=== PATIENT | male | born 1960 | race Caucasian/White ===

== ENCOUNTER 2017-03-24 06:48 | Emergency (ER) | payer MEDICARE, OTHER ==
[~2017-03-24] VITALS: Ht 185.4 cm; Wt 138.7 kg
[~2017-03-24 06:48] MED LIST: AMLO10 PO; ASPI325T PO; CARV3.12 PO; ISOS60 PO; LOSA50 PO; PRAS10 PO; ROSU10 PO
[2017-03-24 06:56] VITALS: BP 156/75; PULSE 80; RESP 16; TEMP 97.9; O2SAT 96
[2017-03-24] MEDS ORDERED: CARV3.12 PO (07:13)
[2017-03-24] MEDS ORDERED: ROSU20 PO (07:13)
[2017-03-24] MEDS ORDERED: LOSA100T PO (07:13)
[2017-03-24] MEDS ORDERED: AMLO10TA2 PO (07:13)
[2017-03-24] MEDS ORDERED: ISOS30TA3 PO (07:13)
[2017-03-24] MEDS ORDERED: ASPI-183 PO (07:13)
--- NOTE | 2017-03-24 07:25 | PD ---
HPI Chief Complaint: Respiratory Symptoms Time Seen by Provider: 07:22 Travel History International Travel<30 days: No Contact w/Intl Traveler<30days: No Traveled to known affect area: No History of Present Illness HPI 56-year-old male patient with history of 2 previous MIs, stenting, hypertension , high cholesterol, presents to the ER today because he states that he started having shortness of breath last night when he would lay down. He states that it happened twice. He denies any chest pains, but has been coughing with some white phlegm. He denies any fevers, abdominal pains, vomiting, or any other symptoms. Modifying Factors: None Associated Signs & Symptoms: Shortness of breath, coughing Risk Factors: None PFSH Past Medical History Blood Disorders: No Heart Rhythm Problems: No Cancer: No Cardiovascular Problems: No High Cholesterol: Yes Chest Pain: Yes ([place]) Congestive Heart Failure: No Diminished Hearing: No Endocrine: No Gastrointestinal Disorders: No Gout: Yes Genitourinary: No Hypertension: Yes Immune Disorder: No Musculoskeletal: No Neurologic: No Psychiatric: No Reproductive: No Respiratory: No Immunizations Current: No Myocardial Infarction: Yes (11/16/08) Shingles: No Past Surgical History Abdominal Surgery: No Cardiac Surgery: Yes (2008 3 STENTS LAD) Coronary Stent: Yes (X3) Ear Surgery: No Endocrine Surgery: No Eye Surgery: No Genitourinary Surgery: No Gynecologic Surgery: No Oral Surgery: No Thoracic Surgery: No Other Surgery: Yes (CYST REMOVED FROM BACK IN 2005) Social History Alcohol Use: Yes (DAILY) Tobacco Use: No Substance Use: No Allergies-Medications (Allergen,Severity, Reaction): Coded Allergies: lovastatin (Unverified Allergy, Severe, MUSCLE PAIN, 03/24/17) benazepril (Unverified Adverse Reaction, Unknown, COUGH, 03/24/17) cough captopril (Unverified Adverse Reaction, Unknown, COUGH, 03/24/17) cough enalaprilat (Unverified Adverse Reaction, Unknown, COUGH, 03/24/17) cough fosinopril (Unverified Adverse Reaction, Unknown, COUGH, 03/24/17) cough lisinopril (Unverified Adverse Reaction, Unknown, COUGH, 03/24/17) cough quinapril (Unverified Adverse Reaction, Unknown, COUGH, 03/24/17) cough Reported Meds & Prescriptions Reported Meds & Active Scripts Active Reported Isosorbide Mononitrate ER (Isosorbide Mononitrate) 30 Mg Juan Jose 30 Mg PO DAILY Amlodipine (Amlodipine Besylate) 10 Mg Tab 10 Mg PO HS Aspirin 325 Mg Tab 325 Mg PO DAILY Losartan (Losartan Potassium) 100 Mg Tab 100 Mg PO DAILY Crestor (Rosuvastatin Calcium) 20 Mg Tab 20 Mg PO HS Carvedilol 3.125 Mg Tab 3.125 Mg PO BID Review of Systems Except as stated in HPI: all other systems reviewed are Neg Physical Exam Narrative GENERAL: Well-developed middle age white male patient currently in mild distress. Awake and oriented 3. SKIN: Focused skin assessment warm/dry. HEAD: Atraumatic. Normocephalic. EYES: Pupils equal and round. No scleral icterus. No injection or drainage. ENT: No nasal bleeding or discharge. Mucous membranes pink and moist. NECK: Trachea midline. No JVD. Supple. CARDIOVASCULAR: Regular rate and rhythm. No murmur appreciated. Pulses are present and equal bilaterally. RESPIRATORY: No accessory muscle use. Clear to auscultation. Breath sounds equal bilaterally. GASTROINTESTINAL: Abdomen soft, non-tender, nondistended. Hepatic and splenic margins not palpable. MUSCULOSKELETAL: No obvious deformities. No clubbing. No cyanosis. No edema. NEUROLOGICAL: Awake and alert. No obvious cranial nerve deficits. Motor grossly within normal limits. Normal speech. PSYCHIATRIC: Appropriate mood and affect; insight and judgment normal. Data Data Last Documented VS Vital Signs Date Time Temp Pulse Resp B/P (MAP) Pulse Ox O2 Delivery O2 Flow Rate FiO2 03/24/17 07:43 95 Room Air 03/24/17 06:56 97.9 80 16 Orders Orders Complete Blood Count With Diff (03/24/17 07:16) Comprehensive Metabolic Panel (03/24/17 07:16) B-Type Natriuretic Peptide (03/24/17 07:16) Act Partial Throm Time (Ptt) (03/24/17 07:16) Prothrombin Time / Inr (Pt) (03/24/17 07:16) Ckmb (Isoenzyme) Profile (03/24/17 07:16) Troponin I (03/24/17 07:16) Iv Access Insert/Monitor (03/24/17 07:16) Ecg Monitoring (03/24/17 07:16) Oximetry (03/24/17 07:16) Oxygen Administration (03/24/17 07:16) Chest, Single Ap (03/24/17 07:16) Sodium Chloride 0.9% Flush (Ns Flush) (03/24/17 07:30) D-Dimer (03/24/17 07:22) CKMB (03/24/17 07:30) CKMB% (03/24/17 07:30) Ed Discharge Order (03/24/17 08:49) Labs Laboratory Tests Test 03/24/17 07:30 White Blood Count 8.4 TH/MM3 Red Blood Count 5.08 MIL/MM3 Hemoglobin 14.1 GM/DL Hematocrit 42.7 % Mean Corpuscular Volume 84.0 FL Mean Corpuscular Hemoglobin 27.7 PG Mean Corpuscular Hemoglobin Concent 33.0 % Red Cell Distribution Width 12.9 % Platelet Count 173 TH/MM3 Mean Platelet Volume 8.9 FL Neutrophils (%) (Auto) 67.8 % Lymphocytes (%) (Auto) 20.6 % Monocytes (%) (Auto) 7.3 % Eosinophils (%) (Auto) 3.1 % Basophils (%) (Auto) 1.2 % Neutrophils # (Auto) 5.7 TH/MM3 Lymphocytes # (Auto) 1.7 TH/MM3 Monocytes # (Auto) 0.6 TH/MM3 Eosinophils # (Auto) 0.3 TH/MM3 Basophils # (Auto) 0.1 TH/MM3 CBC Comment DIFF FINAL Differential Comment Prothrombin Time 10.0 SEC Prothromb Time International Ratio 1.0 RATIO Activated Partial Thromboplast Time 25.0 SEC D-Dimer Quantitative (PE/DVT) 0.30 MG/L FEU Blood Urea Nitrogen 10 MG/DL Creatinine 0.95 MG/DL Random Glucose 118 MG/DL Total Protein 7.2 GM/DL Albumin 3.8 GM/DL Calcium Level 8.3 MG/DL Alkaline Phosphatase 61 U/L Aspartate Amino Transf (AST/SGOT) 18 U/L Alanine Aminotransferase (ALT/SGPT) 32 U/L Total Bilirubin 0.5 MG/DL Sodium Level 139 MEQ/L Potassium Level 4.1 MEQ/L Chloride Level 106 MEQ/L Carbon Dioxide Level 24.8 MEQ/L Anion Gap 8 MEQ/L Estimat Glomerular Filtration Rate 81 ML/MIN Total Creatine Kinase 159 U/L Creatine Kinase MB 2.0 NG/ML Troponin I LESS THAN 0.02 NG/ML B-Type Natriuretic Peptide 53 PG/ML MDM Medical Decision Making Medical Screen Exam Complete: Yes Emergency Medical Condition: Yes Medical Record Reviewed: Yes Interpretation(s) EKG shows a normal sinus rhythm at a rate of 77 bpm with a first-degree AV block. There is also a partial left fascicular block. No signs of acute ST-T changes. Laboratory Tests Test 03/24/17 07:30 Random Glucose 118 MG/DL (74-106) Calcium Level 8.3 MG/DL (8.5-10.1) Estimat Glomerular Filtration Rate 81 ML/MIN (>89) Troponin I LESS THAN 0.02 NG/ML Last 24 hours Impressions Chest X-Ray 03/24/1716 Signed Impressions: Service Date/Time: Friday, March 24, 2017 07:36 - CONCLUSION: No acute disease. Maynor Kwan MD Differential Diagnosis Shortness of breath, coughing: Bronchitis versus pneumonia versus CHF versus anxiety attacks versus dysrhythmias Narrative Course On exam, his lungs are clear. His chest x-ray is unremarkable for any signs of pneumonia or other acute ulnar processes. BNP is normal. D-dimer is negative. Vital signs do show an elevated blood pressure but was otherwise unremarkable. He is not having any chest pains. EKG did not show dysrhythmias. At this point, my plan would be to release him with follow-up to primary care physician. Return for any worsening in symptoms as needed. The plan has been discussed with him and he states understanding. Diagnosis Primary Impression: Shortness of breath Prasanth Tan MD Mar 24, 2017 07:24
[2017-03-24] MEDS ORDERED: SODIUM CHLORIDE 0.9% FLUSH 10 ML FLUSH IVF PRN (07:30)
[2017-03-24 07:34] LABS: AUTOMATED NEUTROPHIL # 5.7 TH/MM3 (1.8-7.7); BASOPHIL # 0.1 TH/MM3 (0-0.2); BASOPHIL % 1.2 % (0.0-2.0); EOSINOPHIL # 0.3 TH/MM3 (0-0.4); EOSINOPHIL % 3.1 % (0.0-4.0); HEMATOCRIT 42.7 % (39.0-51.0); HEMOGLOBIN 14.1 GM/DL (13.0-17.0); LYMPH % 20.6 % (9.0-44.0); LYMPHOCYTE # 1.7 TH/MM3 (1.0-4.8); MEAN CORPUSCULAR HEMOGLOBIN 27.7 PG (27.0-34.0); MEAN PLATELET VOLUME 8.9 FL (7.0-11.0); MONO % 7.3 % (0.0-8.0); MONOCYTE # 0.6 TH/MM3 (0-0.9); NEUT % 67.8 % (16.0-70.0); PLATELET COUNT 173 TH/MM3 (150-450); RED BLOOD COUNT 5.08 MIL/MM3 (4.50-5.90); RED CELL DISTRIBUTION WIDTH 12.9 % (11.6-17.2); WHITE BLOOD COUNT 8.4 TH/MM3 (4.0-11.0)
[2017-03-24 07:42] LABS: CHLORIDE 106 MEQ/L (98-107); SODIUM (NA) 139 MEQ/L (136-145)
[2017-03-24 07:43] VITALS: O2SAT 95
[2017-03-24 07:45] LABS: ALBUMIN 3.8 GM/DL (3.4-5.0); BICARBONATE 24.8 MEQ/L (21.0-32.0); CALCIUM 8.3 MG/DL (8.5-10.1); GLUCOSE,RANDOM 118 MG/DL (74-106)
[2017-03-24 07:46] LABS: BLOOD UREA NITROGEN 10 MG/DL (7-18)
[2017-03-24 07:48] LABS: ALT (GPT) 32 U/L (12-78)
[2017-03-24 07:49] LABS: AST (GOT) 18 U/L (15-37); CREATININE 0.95 MG/DL (0.60-1.30); GLOMERULAR FILTRATION RATE 81 ML/MIN (>89)
[2017-03-24 07:50] LABS: TOTAL BILIRUBIN ADULT 0.5 MG/DL (0.2-1.0); TOTAL PROTEIN 7.2 GM/DL (6.4-8.2)
--- NOTE | 2017-03-24 07:50 | RADRPT ---
EXAM DATE/TIME: 03/24/2017 07:36 [facility] COMPARISON: CHEST SINGLE AP, December 01, 2015, 14:04. INDICATIONS : Chest pain and shortness of breath. MEDICAL HISTORY : None. SURGICAL HISTORY : cardiac stents ENCOUNTER: Initial ACUITY: 1 day PAIN SCORE: 8/10 LOCATION: Bilateral upper chest FINDINGS: A single view of the chest demonstrates the lungs to be symmetrically aerated without evidence of mas s, infiltrate or effusion. The cardiomediastinal contours are unremarkable. Osseous structures are intact. CONCLUSION: No acute disease. Maynor Kwan MD on March 24, 2017 at 7:48 Board Certified Radiologist. This report was verified electronically.
[2017-03-24 07:51] LABS: ALKALINE PHOSPHATASE 61 U/L (45-117)
[2017-03-24 07:53] LABS: TROPONIN I LESS THAN 0.02 NG/ML (0.02-0.05)
[2017-03-24 08:57] VITALS: BP 153/87
--- NOTE | 2017-03-24 17:26 | EKG ---
Date Performed: 03/24/2017 Time Performed: 07:05:14 PTAGE: 56 years EKG: Sinus rhythm WITH FIRST DEGREE AV BLOCK LOW QRS VOLTAGE IN PRECORDIAL LEADS LEFT ANTERIOR FASCICULAR BLOCK MIRACLE SEPTAL MYOCARDIAL INFARCTION Since previous tracing, no significant change noted ABNORMAL ECG PREVIOUS TRACING : 12/28/2015 10.11 DOCTOR: Raquel Valentin Interpretating Date/Time 03/24/2017 17:24:35
== END 2017-03-24 09:02 | disposition home or self-care (01) ==
LOC: PHED 06:48
DX: R05 Cough (principal); R06.02 Shortness of breath; I44.0 Atrioventricular block, first degree; I44.69 Other fascicular block; R94.31 Abnormal electrocardiogram [ECG] [EKG]; I25.2 Old myocardial infarction; E78.00 Pure hypercholesterolemia, unspecified; M10.9 Gout, unspecified; I10 Essential (primary) hypertension
CPT/HCPCS: 71010; 80053; 82550; 82552; 83880; 84484; 85025; 85379; 85610; 85730; 93005; 99285

== ENCOUNTER 2017-05-03 14:57 | Observation (INO) | payer MEDICARE, OTHER ==
[~2017-05-03] VITALS: Ht 185.4 cm; Wt 137.0 kg
[2017-05-03] VITALS (11 sets, daily range): BP systolic 134–178; BP diastolic 82–97; PULSE 77–137; RESP 16–18; TEMP 96.5–98.4; O2SAT 94–97
[~2017-05-03 14:57] MED LIST changes: -AMLO10 PO; +AMLO10TA2 PO; +ASPI-183 PO; -ASPI325T PO; +ISOS30TA3 PO; -ISOS60 PO; +LOSA100T PO; -LOSA50 PO; -PRAS10 PO; -ROSU10 PO; +ROSU20 PO
[2017-05-03] MEDS ORDERED: SODIUM CHLORIDE 0.9% FLUSH 10 ML FLUSH IVF PRN (15:15)
[2017-05-03] MEDS ORDERED: ASPIRIN 325 MG TAB PO ONE (15:15)
--- NOTE | 2017-05-03 15:26 | PD ---
HPI Chief Complaint: Respiratory Symptoms Time Seen by Provider: 15:06 Travel History International Travel<30 days: No Contact w/Intl Traveler<30days: No Traveled to known affect area: No History of Present Illness HPI This patient developed central chest discomfort and had some shortness of breath. He thinks the symptoms were caused by a combination of drinking alcohol last night and taking his blood pressure medication. He says it happened once before. He does have history of coronary disease with 2 stents placed. Symptoms were moderately severe. Chest pain started 2 hours ago. It' s much improved at this point. No obvious alleviating factors. No exacerbating factors. He does not have any productive cough or fever. PFSH Past Medical History Hx Anticoagulant Therapy: Yes (325 ASA DAILY) Blood Disorders: No Heart Rhythm Problems: No Cancer: No Cardiovascular Problems: Yes (ID'S TIMES 2, CHOL, HTN) High Cholesterol: Yes Chest Pain: Yes ([place]) Congestive Heart Failure: No Diabetes: No Diminished Hearing: No Endocrine: No Gastrointestinal Disorders: No Gout: Yes Genitourinary: No Hypertension: Yes Immune Disorder: No Musculoskeletal: No Neurologic: No Psychiatric: No Reproductive: No Respiratory: No Immunizations Current: No Myocardial Infarction: Yes (11/16/08) Shingles: No Past Surgical History Abdominal Surgery: No Cardiac Surgery: Yes (2009 3 STENTS LAD) Coronary Stent: Yes (X3) Ear Surgery: No Endocrine Surgery: No Eye Surgery: No Genitourinary Surgery: No Gynecologic Surgery: No Oral Surgery: No Thoracic Surgery: No Other Surgery: Yes (CYST REMOVED FROM BACK IN 2005) Social History Alcohol Use: Yes (DAILY) Tobacco Use: No Substance Use: No Allergies-Medications (Allergen,Severity, Reaction): Coded Allergies: lovastatin (Unverified Allergy, Severe, MUSCLE PAIN, 05/03/17) benazepril (Unverified Adverse Reaction, Unknown, COUGH, 05/03/17) cough captopril (Unverified Adverse Reaction, Unknown, COUGH, 05/03/17) cough enalaprilat (Unverified Adverse Reaction, Unknown, COUGH, 05/03/17) cough fosinopril (Unverified Adverse Reaction, Unknown, COUGH, 05/03/17) cough lisinopril (Unverified Adverse Reaction, Unknown, COUGH, 05/03/17) cough quinapril (Unverified Adverse Reaction, Unknown, COUGH, 05/03/17) cough Reported Meds & Prescriptions Reported Meds & Active Scripts Active Reported Nitrostat SL (Nitroglycerin) 0.4 Mg Subl 0.4 Mg SL DIRECTED PRN 1 tablet under the tongue as needed for chest pain. Repeat every 5 minutes for a total of 3 DOSES or call 911 if NO relief. Isosorbide Mononitrate ER (Isosorbide Mononitrate) 30 Mg Juan Jose 30 Mg PO DAILY Amlodipine (Amlodipine Besylate) 10 Mg Tab 10 Mg PO HS Aspirin 325 Mg Tab 325 Mg PO DAILY Losartan (Losartan Potassium) 100 Mg Tab 100 Mg PO DAILY Crestor (Rosuvastatin Calcium) 20 Mg Tab 20 Mg PO HS Carvedilol 3.125 Mg Tab 3.125 Mg PO BID Review of Systems General / Constitutional: No: Fever Eyes: No: Visual changes HENT: No: Headaches Cardiovascular: Positive: Chest Pain or Discomfort Respiratory: Positive: Shortness of Breath Gastrointestinal: No: Abdominal Pain Genitourinary: No: Dysuria Musculoskeletal: No: Pain Skin: No Rash Neurologic: No: Weakness Psychiatric: No: Depression Endocrine: No: Polydipsia Hematologic/Lymphatic: No: Easy Bruising Physical Exam Narrative GENERAL: Well-nourished, well-developed patient in no apparent distress. SKIN: Focused skin assessment reveals no rash and nodules. Skin is Warm and dry. HEAD: Atraumatic. Normocephalic. EYES: Pupils equal and round. No scleral icterus. No injection or drainage. ENT: No nasal bleeding or discharge. Mucous membranes pink and moist. NECK: Trachea midline. No JVD. CARDIOVASCULAR: Regular rate and rhythm. No murmur appreciated. RESPIRATORY: No accessory muscle use. Clear to auscultation. Breath sounds equal bilaterally. GASTROINTESTINAL: Abdomen soft, non-tender, nondistended. Hepatic and splenic margins not palpable. MUSCULOSKELETAL: No obvious deformities. No clubbing. No cyanosis. No edema. NEUROLOGICAL: Awake and alert. No obvious cranial nerve deficits. Motor grossly within normal limits. Normal speech. PSYCHIATRIC: Appropriate mood and affect; insight and judgment normal. Data Data Last Documented VS Vital Signs Date Time Temp Pulse Resp B/P (MAP) Pulse Ox O2 Delivery O2 Flow Rate FiO2 05/03/17 15:50 84 16 178/91 (120) 97 Room Air 05/03/17 15:00 98.4 Orders Orders Electrocardiogram (05/03/17 15:12) Basic Metabolic Panel (Bmp) (05/03/17 15:12) Ckmb (Isoenzyme) Profile (05/03/17 15:12) Complete Blood Count With Diff (05/03/17 15:12) Prothrombin Time / Inr (Pt) (05/03/17 15:12) Act Partial Throm Time (Ptt) (05/03/17 15:12) Troponin I (05/03/17 15:12) Chest, Single Ap (05/03/17 15:12) Ecg Monitoring (05/03/17 15:12) Iv Access Insert/Monitor (05/03/17 15:12) Oximetry (05/03/17 15:12) Aspirin (Aspirin) (05/03/17 15:15) Sodium Chloride 0.9% Flush (Ns Flush) (05/03/17 15:15) CKMB (05/03/17 15:45) CKMB% (05/03/17 15:45) Admit Order (Ed Use Only) (05/03/17 17:15) Labs Laboratory Tests Test 05/03/17 15:45 White Blood Count 8.6 TH/MM3 Red Blood Count 4.79 MIL/MM3 Hemoglobin 13.2 GM/DL Hematocrit 40.2 % Mean Corpuscular Volume 84.0 FL Mean Corpuscular Hemoglobin 27.6 PG Mean Corpuscular Hemoglobin Concent 32.8 % Red Cell Distribution Width 13.0 % Platelet Count 199 TH/MM3 Mean Platelet Volume 10.1 FL Neutrophils (%) (Auto) 68.0 % Lymphocytes (%) (Auto) 20.9 % Monocytes (%) (Auto) 7.2 % Eosinophils (%) (Auto) 2.5 % Basophils (%) (Auto) 1.4 % Neutrophils # (Auto) 5.9 TH/MM3 Lymphocytes # (Auto) 1.8 TH/MM3 Monocytes # (Auto) 0.6 TH/MM3 Eosinophils # (Auto) 0.2 TH/MM3 Basophils # (Auto) 0.1 TH/MM3 CBC Comment DIFF FINAL Differential Comment Prothrombin Time 10.3 SEC Prothromb Time International Ratio 1.0 RATIO Activated Partial Thromboplast Time 24.3 SEC Blood Urea Nitrogen 14 MG/DL Creatinine 1.00 MG/DL Random Glucose 98 MG/DL Calcium Level 8.8 MG/DL Sodium Level 139 MEQ/L Potassium Level 3.9 MEQ/L Chloride Level 105 MEQ/L Carbon Dioxide Level 25.6 MEQ/L Anion Gap 8 MEQ/L Estimat Glomerular Filtration Rate 76 ML/MIN Total Creatine Kinase 203 U/L Creatine Kinase MB 1.9 NG/ML Troponin I LESS THAN 0.02 NG/ML MDM Medical Decision Making Medical Screen Exam Complete: Yes Emergency Medical Condition: Yes Medical Record Reviewed: Yes Differential Diagnosis Differential diagnosis includes ID, angina, pericarditis, pleurisy, GERD, anxiety. Narrative Course I have reviewed the patient's electronic medical record. I reviewed his visit from last month IV placed I reviewed the EKG which shows sinus rhythm with no ST elevation. There is a PVC every fifth beat I reviewed the chest x-ray which is normal Extended cardiac monitoring shows sinus rhythm with occasional PVC CBC is normal Metabolic profile is normal CK is normal Troponin is normal Coagulation studies are normal Upon recheck the patient has an irregularly irregular heartbeat with a rate of around 100. There is some variability to this. He is in a new onset of atrial fibrillation. Patient requires hospitalization for chest pain as well as new-onset A. fib. I reviewed with Dr. Van Diagnosis Primary Impression: Chest pain in adult Additional Impression: New onset atrial fibrillation Admitting Information Admitting Physician Requests: Admit Efrain Cruz MD May 03, 2017 15:26
[2017-05-03] MEDS ORDERED: NITR0.4S SL (15:54)
[2017-05-03 16:06] LABS: AUTOMATED NEUTROPHIL # 5.9 TH/MM3 (1.8-7.7); BASOPHIL # 0.1 TH/MM3 (0-0.2); BASOPHIL % 1.4 % (0.0-2.0); EOSINOPHIL # 0.2 TH/MM3 (0-0.4); EOSINOPHIL % 2.5 % (0.0-4.0); HEMATOCRIT 40.2 % (39.0-51.0); HEMOGLOBIN 13.2 GM/DL (13.0-17.0); LYMPH % 20.9 % (9.0-44.0); LYMPHOCYTE # 1.8 TH/MM3 (1.0-4.8); MEAN CORPUSCULAR HEMOGLOBIN 27.6 PG (27.0-34.0); MEAN CORPUSCULAR HGB CONC 32.8 % (32.0-36.0); MEAN PLATELET VOLUME 10.1 FL (7.0-11.0); MONO % 7.2 % (0.0-8.0); MONOCYTE # 0.6 TH/MM3 (0-0.9); PLATELET COUNT 199 TH/MM3 (150-450); RED BLOOD COUNT 4.79 MIL/MM3 (4.50-5.90); WHITE BLOOD COUNT 8.6 TH/MM3 (4.0-11.0)
--- NOTE | 2017-05-03 16:09 | RADRPT ---
EXAM DATE/TIME: 05/03/2017 15:54 [facility] COMPARISON: CHEST SINGLE AP, March 24, 2017, 7:36. INDICATIONS : Short of breath, cough, chest pains MEDICAL HISTORY : None. SURGICAL HISTORY : Cardiac stents ENCOUNTER: Initial ACUITY: 1 day PAIN SCORE: 1/10 LOCATION: Bilateral chest FINDINGS: The lungs are clear without infiltrate, nodule, or mass. There is no appreciable pleural effusion fo r technique. Heart and mediastinum are unremarkable. CONCLUSION: No acute cardiopulmonary disease. Kyle Braden MD on May 03, 2017 at 16:06 Board Certified Radiologist. This report was verified electronically.
[2017-05-03 16:17] LABS: CHLORIDE 105 MEQ/L (98-107); SODIUM (NA) 139 MEQ/L (136-145)
[2017-05-03 16:20] LABS: CALCIUM 8.8 MG/DL (8.5-10.1)
[2017-05-03 16:21] LABS: BICARBONATE 25.6 MEQ/L (21.0-32.0); BLOOD UREA NITROGEN 14 MG/DL (7-18); GLUCOSE,RANDOM 98 MG/DL (74-106)
[2017-05-03 16:22] LABS: PROTHROMBIN TIME - PATIENT 10.3 SEC (9.8-11.6)
[2017-05-03 16:24] LABS: GLOMERULAR FILTRATION RATE 76 ML/MIN (>89)
[2017-05-03 16:29] LABS: TROPONIN I LESS THAN 0.02 NG/ML (0.02-0.05)
[2017-05-03] MEDS ORDERED: SODIUM CHLORIDE 0.9% FLUSH 10 ML FLUSH IV FLUSH PRN (17:30)
[2017-05-03] MEDS: SODIUM CHLORIDE 0.9% FLUSH 10 ML FLUSH IV FLUSH SCH (21:36)
[2017-05-04] VITALS (10 sets, daily range): BP systolic 131–155; BP diastolic 68–98; PULSE 50–90; RESP 16–18; TEMP 96.5–98.4; O2SAT 93–98
--- NOTE | 2017-05-04 09:40 | HHI.HP ---
[facility] Service [facility] Primary [facility] Physician Kathy Payton MD Admission Diagnosis chest pain, new onset Afib, CAD Diagnoses: (1) Dyspnea (2) New onset atrial fibrillation (3) CAD (coronary artery disease) Chief Complaint: Dyspnea Travel History International Travel<30 Days: No Contact w/Intl Traveler <30 Da: No Traveled to Known Affected Are: No History of Present Illness The patient is a 57-year-old male with known history of coronary artery disease who presented with complaint of shortness of breath over the past few days. He states that he developed worsening of his symptoms after drinking alcohol. He states that he did not have more than his normal 2-3 drinks per day. He denies chest pain. He states that the shortness of breath has improved. Review of Systems Constitutional: DENIES: Fever, Chills, Night Sweats Eyes: DENIES: Blurred vision, Vision loss Ears, nose, mouth, throat: DENIES: Hearing loss Respiratory: COMPLAINS OF: Shortness of breath, DENIES: Cough, Wheezing, Sputum production Cardiovascular: DENIES: Chest pain, Palpitations, Dyspnea on Exertion, Lower Extremity Edema Gastrointestinal: DENIES: Abdominal pain, Constipation, Diarrhea, Nausea, Vomiting Genitourinary: DENIES: Urinary frequency, Urinary incontinence, Urgency, Hematuria, Dysuria, Nocturia Musculoskeletal: DENIES: Joint pain, Muscle aches Integumentary: DENIES: Pruritus, Rash Hematologic/lymphatic: DENIES: Bruising Neurologic: DENIES: Headache Past Family Social History Past Medical History Coronary artery disease Hyperlipidemia Hypertension Past Surgical History Cardiac catheterization with stent placement Reported Medications Nitrostat SL (Nitroglycerin) 0.4 Mg Subl 0.4 Mg SL DIRECTED PRN 1 tablet under the tongue as needed for chest pain. Repeat every 5 minutes for a total of 3 DOSES or call 911 if NO relief. Isosorbide Mononitrate ER (Isosorbide Mononitrate) 30 Mg Juan Jose 30 Mg PO DAILY Amlodipine (Amlodipine Besylate) 10 Mg Tab 10 Mg PO HS Aspirin 325 Mg Tab 325 Mg PO DAILY Losartan (Losartan Potassium) 100 Mg Tab 100 Mg PO DAILY Crestor (Rosuvastatin Calcium) 20 Mg Tab 20 Mg PO HS Carvedilol 3.125 Mg Tab 3.125 Mg PO BID Allergies: Coded Allergies: lovastatin (Unverified Allergy, Severe, MUSCLE PAIN, 05/03/17) benazepril (Unverified Adverse Reaction, Unknown, COUGH, 05/03/17) cough captopril (Unverified Adverse Reaction, Unknown, COUGH, 05/03/17) cough enalaprilat (Unverified Adverse Reaction, Unknown, COUGH, 05/03/17) cough fosinopril (Unverified Adverse Reaction, Unknown, COUGH, 05/03/17) cough lisinopril (Unverified Adverse Reaction, Unknown, COUGH, 05/03/17) cough quinapril (Unverified Adverse Reaction, Unknown, COUGH, 05/03/17) cough Family History Heart disease Hypertension Hyperlipidemia Social History Patient reports 2-3 alcoholic drinks per day. Denies tobacco or illicit drug use. Physical Exam Vital Signs Vital Signs Date Time Temp Pulse Resp B/P (MAP) Pulse Ox O2 Delivery O2 Flow Rate FiO2 05/04/17 04:00 96.9 89 18 148/89 (108) 96 05/04/17 00:00 97.8 70 18 139/86 (103) 95 05/03/17 23:00 82 05/03/17 21:30 94 21 05/03/17 20:00 96.5 77 18 134/82 (99) 95 05/03/17 18:47 97.5 137 16 158/93 (114) 96 05/03/17 18:35 120 16 173/90 (117) 97 05/03/17 17:25 97 21 05/03/17 17:15 117 16 165/97 (119) 97 Room Air 05/03/17 17:00 104 16 97 Room Air 05/03/17 15:50 93 16 169/89 (115) 97 Room Air 05/03/17 15:30 91 16 178/91 (120) 97 Room Air 05/03/17 15:27 90 16 97 Room Air 05/03/17 15:27 18 97 Room Air 05/03/17 15:00 98.4 92 16 153/83 (106) 96 Physical Exam GENERAL: Well-nourished, well-developed male in no acute distress. HEENT: Normocephalic, atraumatic. Pupils equal, round and reactive. Extraocular movements intact. No scleral icterus. No injection or drainage. Oropharynx is clear. Mucous membranes are moist. CARDIOVASCULAR: Irregular rhythm. RESPIRATORY: Clear to auscultation. No wheezes, rales, or rhonchi. Breathing is non-labored. GASTROINTESTINAL: Abdomen soft, non-tender, nondistended. EXTREMITIES: No lower extremity edema. No calf tenderness. PSYCH: Alert and oriented x 3. Laboratory Laboratory Tests Test 05/03/17 15:45 05/03/17 20:20 05/03/17 23:48 White Blood Count 8.6 Red Blood Count 4.79 Hemoglobin 13.2 Hematocrit 40.2 Mean Corpuscular Volume 84.0 Mean Corpuscular Hemoglobin 27.6 Mean Corpuscular Hemoglobin Concent 32.8 Red Cell Distribution Width 13.0 Platelet Count 199 Mean Platelet Volume 10.1 Neutrophils (%) (Auto) 68.0 Lymphocytes (%) (Auto) 20.9 Monocytes (%) (Auto) 7.2 Eosinophils (%) (Auto) 2.5 Basophils (%) (Auto) 1.4 Neutrophils # (Auto) 5.9 Lymphocytes # (Auto) 1.8 Monocytes # (Auto) 0.6 Eosinophils # (Auto) 0.2 Basophils # (Auto) 0.1 CBC Comment DIFF FINAL Differential Comment Prothrombin Time 10.3 Prothromb Time International Ratio 1.0 Activated Partial Thromboplast Time 24.3 Blood Urea Nitrogen 14 Creatinine 1.00 Random Glucose 98 Calcium Level 8.8 Sodium Level 139 Potassium Level 3.9 Chloride Level 105 Carbon Dioxide Level 25.6 Anion Gap 8 Estimat Glomerular Filtration Rate 76 Total Creatine Kinase 203 Creatine Kinase MB 1.9 Troponin I LESS THAN 0.02 LESS THAN 0.02 LESS THAN 0.02 Result Diagram: 05/03/17 1545 05/03/17 1545 Imaging Last Impressions Chest X-Ray 05/03/17 1512 Signed Impressions: Service Date/Time: Wednesday, May 03, 2017 15:54 - CONCLUSION: No acute cardiopulmonary disease. MD Gilma Linton VTE Risk Assessment Gilma VTE Risk Assessment: Mod/High Risk (score >= 2) Caprini Risk Assessment Model Point Value = 1 Point Value = 2 Point Value = 3 Point Value = 5 Age 41-60 Minor surgery BMI > 25 kg/m2 Swollen legs Varicose veins or History of unexplained or recurrent spontaneous Oral contraceptives or hormone replacement Sepsis (< 1 month) Serious lung disease, including pneumonia (< 1 month) Abnormal pulmonary function Acute myocardial infarction Congestive heart failure (< 1 month) History of inflammatory bowel disease Medical patient at bed rest Age 61-74 Arthroscopic surgery Major open surgery (> 45 min) Laparoscopic surgery (> 45 min) Malignancy Confined to bed (> 72 hours) Immobilizing plaster cast Central venous access Age >= 75 History of VTE Family history of VTE Factor V Leiden Prothrombin [id number] Lupus anticoagulant Anticardiolipin antibodies Elevated serum homocysteine Heparin-induced thrombocytopenia Other congenital or acquired thrombophilia Stroke (< 1 month) Elective arthroplasty Hip, pelvis, or leg fracture Acute spinal cord injury (< 1 month) Prophylaxis Regimen Total Risk Factor Score Risk Level Prophylaxis Regimen 0-1 Low Early ambulation 2 Moderate Order ONE of the following: *Sequential Compression Device (SCD) *Heparin 5000 units SQ BID 3-4 Higher Order ONE of the following medications: *Heparin 5000 units SQ TID *Enoxaparin/Lovenox 40 mg SQ daily (WT < 150 kg, CrCl > 30 mL/min) *Enoxaparin/Lovenox 30 mg SQ daily (WT < 150 kg, CrCl > 10-29 mL/min) *Enoxaparin/Lovenox 30 mg SQ BID (WT < 150 kg, CrCl > 30 mL/min) AND/OR *Sequential Compression Device (SCD) 5 or more Highest Order ONE of the following medications: *Heparin 5000 units SQ TID (Preferred with Epidurals) *Enoxaparin/Lovenox 40 mg SQ daily (WT < 150 kg, CrCl > 30 mL/min) *Enoxaparin/Lovenox 30 mg SQ daily (WT < 150 kg, CrCl > 10-29 mL/min) *Enoxaparin/Lovenox 30 mg SQ BID (WT < 150 kg, CrCl > 30 mL/min) AND *Sequential Compression Device (SCD) Assessment and Plan Assessment and Plan 1. Dyspnea: Improving. Likely secondary to arrhythmia. Serial cardiac enzymes are negative. 2. New onset atrial fibrillation: Monitor on telemetry. Cardiology consult is pending. Will likely need full anticoagulation. 3. Hypertension: Continue losartan, amlodipine. 4. CAD: Continue Isosorbide, aspirin, losartan, Crestor, carvedilol. 5. Hyperlipidemia: Continue statin. 6. DVT prophylaxis: AYAN Brandt. Efrain Estrada MD May 04, 2017 09:39
[2017-05-04] MEDS: SODIUM CHLORIDE 0.9% FLUSH 10 ML FLUSH IV FLUSH SCH ×2 (09:49→20:30)
[2017-05-04] MEDS: LOSARTAN 50 MG TAB PO SCH (09:50)
[2017-05-04] MEDS: ISOSORBIDE MONONITRATE 30 MG TAB PO SCH (09:50)
[2017-05-04] MEDS ORDERED: CARVEDILOL 3.125 MG TAB PO SCH (10:00)
--- NOTE | 2017-05-04 13:33 | MB ---
cc: SHAMA VALENTIN MD DATE OF CONSULTATION: 05/04/2017 REASON FOR CONSULTATION New-onset atrial fibrillation. HISTORY OF PRESENT ILLNESS Mr. Miramontes is a 57-year-old patient of my partner Dr. Rangel. He does have history of hypertension and previous stenting of his proximal LAD. As well, he has a known COOK CANDY of his RCA with bridging collaterals that supply the PDA. The patient emphatically denies any chest pain. He does report that he has had some shortness of breath which precipitated his emergency room visit. The patient reports that he had shortness of breath over the last couple days. He has also had some palpitations. PAST MEDICAL HISTORY Significant for: 1. Hypertension. 2. Hyperlipidemia. 3. CAD. 4. Ischemic cardiomyopathy with an EF of 40-45%. OUTPATIENT MEDICATIONS Include: 1. Isosorbide. 2. Amlodipine. 3. Aspirin. 4. Losartan. 5. Crestor. 6. Carvedilol. ALLERGIES LOVASTATIN, CAPTOPRIL, ENALAPRIL, FOSINOPRIL, LISINOPRIL AND QUINAPRIL THAT CAUSE COUGH. FAMILY HISTORY Positive for hypertension and heart disease. SOCIAL HISTORY The patient does have [id number] drinks a day. REVIEW OF SYSTEMS Except as mentioned in the HPI, all 12 systems are negative. PHYSICAL EXAMINATION VITAL SIGNS: Currently are 98.0, 50, 18, 155/98. GENERAL: He is an obese man who is in no apparent distress. NECK: His neck is free from JVD. LUNGS: Lungs are bilaterally clear to auscultation. CARDIOVASCULAR: He has a normal S1 and S2. I did not appreciate any murmurs, rubs or gallops. ABDOMEN: The abdomen is soft. EXTREMITIES: Extremities are free from edema. IMAGING STUDIES Chest x-ray was negative for any acute process. EKG - the second EKG obtained does show atrial fibrillation with heart rate of 111 beats a minute. IMPRESSION New-onset atrial fibrillation - the patient does have CHADS vas score of 2 with a point for hypertension and a second point for TAD - prior DC. Given this I do believe full anticoagulation is reasonable. We discussed Coumadin versus new oral agents and he would like to go on Pradaxa as it does have a reversal agent. 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 The patient reports that he previously has been on a higher dose of Coreg and was not able to tolerate it secondary to lethargy. Consequently, I would like to try him on metoprolol for rate control given his underlying ischemic cardiomyopathy. The patient requested further evaluation with testing as an outpatient. Thus, at this point I am simply going to check a TSH. If he is stable overnight he can be discharged and follow up with Dr. Rangel as an outpatient. Hypertension - I am going to add hydralazine 10 mg twice a day to assist with this. Shama Valentin M.D. VIDHYA/TLL /12:41 PM /1:05 PM
[2017-05-04] MEDS: hydrALAZINE HCL 10 MG TAB PO SCH (14:58)
[2017-05-04] MEDS: DABIGATRAN ETEXILATE 150 MG CAP PO SCH (14:59)
--- NOTE | 2017-05-04 15:33 | ECHRPT ---
Indication: CONCLUSIONS Normal left ventricular size. Wall thickness is normal. The left ventricular systolic function is low normal with an estimated ejection fraction in the rang e of 50- 55%. The left atrial size is mildly dilated. LA 4.5cm Mild mitral valve regurgitation. There is mild tricuspid valve regurgitation. The pulmonary valve is not well visualized. BP: / HR: Rhythm: MEASUREMENTS (Male / Female) Normal Values Technical Quality:Good 2D ECHO LV Diastolic Diameter PLAX 5.4 cm 4.2 - 5.9 / 3.9 - 5.3 cm LV Systolic Diameter PLAX 4.6 cm IVS Diastolic Thickness 0.9 cm 0.6 - 1.0 / 0.6 - 0.9 cm LVPW Diastolic Thickness 1.1 cm 0.6 - 1.0 / 0.6 - 0.9 cm LV Relative Wall Thickness 0.3 RV Internal Dim ED PLAX 2.7 cm M-MODE Aortic Root Diameter MM 3.7 cm LA Systolic Diameter MM 4.5 cm LA Ao Ratio MM 1.2 AV Cusp Separation MM 2.6 cm DOPPLER LV E' Lateral Velocity 8.8 cm/s LV E' Septal Velocity 8.9 cm/s FINDINGS LEFT VENTRICLE Normal left ventricular size. Wall thickness is normal. The left ventricular systolic function is low normal with an estimated ejection fraction in the rang e of 50- 55%. RIGHT VENTRICLE Normal right ventricular size and systolic function. LEFT ATRIUM The left atrial size is mildly dilated. LA 4.5cm RIGHT ATRIUM The right atrial size is normal. ATRIAL SEPTUM Normal atrial septal thickness without atrial level shunting by limited color doppler interrogation. AORTA The aortic root and proximal ascending aorta are normal in size on limited imaging. MITRAL VALVE Structurally normal mitral valve. Mild mitral valve regurgitation. AORTIC VALVE Trileaflet aortic valve. No aortic valve stenosis or regurgitation. TRICUSPID VALVE Structurally normal tricuspid valve. There is mild tricuspid valve regurgitation. PULMONARY VALVE The pulmonary valve is not well visualized. VESSELS The inferior vena cava is normal in size. PERICARDIUM No pericardial effusion. Zak Aiken MD, FACC Edited by: [employer] (Electronically Signed) Final Date:04 May 2017 13:24 Amended: 04 May 2017 15:33
[2017-05-04] MEDS: METOPROLOL TARTRATE 25 MG TAB PO SCH (20:26)
[2017-05-04] MEDS ORDERED: ATORVASTATIN 40 MG TAB PO SCH (21:00)
--- NOTE | 2017-05-04 22:07 | EKG ---
Date Performed: 05/03/2017 Time Performed: 22:34:53 PTAGE: 57 years EKG: Sinus rhythm WITH FREQUENT VENTRICULAR PREMATURE COMPLEXES LOW QRS VOLTAGE IN PRECORDIAL LEADS ANTEROSEPTAL MYOCA RDIAL INFARCTION ABNORMAL ECG PREVIOUS TRACING : 05/03/2017 17.03 DOCTOR: Selma Oakes Interpretating Date/Time 05/04/2017 22:01:19
--- NOTE | 2017-05-04 22:13 | EKG ---
Date Performed: 05/03/2017 Time Performed: 17:03:35 PTAGE: 57 years EKG: ATRIAL FIBRILLATION WITH RAPID VENTRICULAR RESPONSE WITH ABERRANT CONDUCTION OR VENTRICULAR PREMATURE COMPLEXES ANTEROSEPTAL MYOCARDIAL INFARCTION ABNORMAL ECG INTERPRETATION BASED ON A DEFAUL T AGE OF 40 YEARS NO PREVIOUS TRACING DOCTOR: Selma Oakes Interpretating Date/Time 05/04/2017 22:04:55
--- NOTE | 2017-05-04 23:00 | EKG ---
Date Performed: 05/03/2017 Time Performed: 15:19:04 PTAGE: 57 years EKG: Sinus rhythm WITH FREQUENT VENTRICULAR PREMATURE COMPLEXES LOW QRS VOLTAGE IN PRECORDIAL LEADS LEFT ANTERIOR FASC ICULAR BLOCK ANTEROSEPTAL MYOCARDIAL INFARCTION ABNORMAL ECG PREVIOUS TRACING : 03/24/2017 07.05 DOCTOR: Selma Oakes Interpretating Date/Time 05/04/2017 23:00:13
[2017-05-05] VITALS: BP 112/69; PULSE 70; RESP 20; TEMP 97.8; O2SAT 94
[2017-05-05] MEDS: DABIGATRAN ETEXILATE 150 MG CAP PO SCH ×2 (00:22→08:46)
[2017-05-05] MEDS: hydrALAZINE HCL 10 MG TAB PO SCH ×2 (00:22→06:44)
[2017-05-05 04:00] VITALS: BP 111/74; PULSE 55; RESP 18; TEMP 97; O2SAT 91
[2017-05-05] MEDS: ISOSORBIDE MONONITRATE 30 MG TAB PO SCH (06:44)
[2017-05-05 08:00] VITALS: BP 108/62; PULSE 77; RESP 18; TEMP 97.8; O2SAT 99
[2017-05-05] MEDS: METOPROLOL TARTRATE 25 MG TAB PO SCH (08:45)
[2017-05-05] MEDS: LOSARTAN 50 MG TAB PO SCH (08:46)
[2017-05-05] MEDS: SODIUM CHLORIDE 0.9% FLUSH 10 ML FLUSH IV FLUSH SCH (08:48)
[2017-05-05] MEDS ORDERED: PRAD150C PO (11:13)
[2017-05-05] MEDS ORDERED: METO25TA3 PO (11:13)
--- NOTE | 2017-05-05 12:35 | HHI.DS ---
Discharge Summary Admission Date May 03, 2017 at 17:16 Discharge Date: May 05, 2017 Admitting Diagnosis chest pain, new onset Afib, CAD (1) Dyspnea ICD Code: R06.00 - Dyspnea, unspecified Diagnosis: Principal (2) New onset atrial fibrillation ICD Code: I48.91 - Unspecified atrial fibrillation Diagnosis: Principal Status: Acute (3) CAD (coronary artery disease) ICD Code: I25.10 - Atherosclerotic heart disease of [place] coronary artery without angina pectoris Diagnosis: Principal Status: Acute Procedures None Brief History - From Admission The patient is a 57-year-old male with known history of coronary artery disease who presented with complaint of shortness of breath over the past few days. He states that he developed worsening of his symptoms after drinking alcohol. He states that he did not have more than his normal 2-3 drinks per day. He denies chest pain. He states that the shortness of breath has improved. CBC/BMP: 05/03/17 1545 05/03/17 1545 Significant Findings Laboratory Tests Test 05/03/17 15:45 05/03/17 20:20 05/03/17 23:48 05/05/17 09:30 Estimat Glomerular Filtration Rate 76 ML/MIN (>89) Troponin I LESS THAN 0.02 NG/ML LESS THAN 0.02 NG/ML LESS THAN 0.02 NG/ML Hospital Course Mr. Miramontes is a 57-year-old male. He has a history of coronary artery disease. He was admitted secondary to chest pain and shortness of breath which was found to be secondary to new onset atrial fibrillation with RVR. He was started on metoprolol and this has resulted in good rate control. He is still in atrial fibrillation. Pradaxa has been recommended by cardiology and patient agrees with this plan. At this point he is asymptomatic with rate control and on a blood thinner. He is medically stable for discharge and follow-up with cardiology as an outpatient. Pt Condition on Discharge: Stable Discharge Disposition: Discharge Home Discharge Time: <= 30 minutes Discharge Instructions DIET: Follow Instructions for: Heart Healthy Diet Activities you can perform: Regular-No Restrictions Follow up Referrals: PCP Follow-up - 2 Weeks New Medications: Dabigatran (Pradaxa) 150 Mg Cap 150 MG PO BID for Blood Clot Prevention, #60 CAP Metoprolol Tartrate (Metoprolol Tartrate) 25 Mg Tab 25 MG PO Q12HR for Heart Rate Control, #60 TAB Continued Medications: Amlodipine (Amlodipine) 10 Mg Tab 10 MG PO HS for Blood Pressure Management, #30 TAB 0 Refills Isosorbide Mononitrate ER (Isosorbide Mononitrate ER) 30 Mg Juan Jose 30 MG PO DAILY for Prevent Chest Pain, #30 TAB 0 Refills Losartan (Losartan) 100 Mg Tab 100 MG PO DAILY for Blood Pressure Management, #30 TAB 0 Refills Nitroglycerin SL (Nitrostat SL) 0.4 Mg Subl 0.4 MG SL DIRECTED PRN for chest pain, #100 TAB.SL 0 Refills 1 tablet under the tongue as needed for chest pain. Repeat every 5 minutes for a total of 3 DOSES or call 911 if NO relief. Rosuvastatin (Crestor) 20 Mg Tab 20 MG PO HS for Cholesterol Management, #30 TAB 0 Refills Discontinued Medications: Aspirin (Aspirin) 325 Mg Tab 325 MG PO DAILY for Blood Clot Prevention, #30 TAB 0 Refills Carvedilol (Carvedilol) 3.125 Mg Tab 3.125 MG PO BID, #60 TAB 0 Refills Luke Nino MD May 05, 2017 12:35
== END 2017-05-05 13:15 | disposition home or self-care (01) ==
LOC: PHED 14:57 → INTOOBSV 17:16 → PHEDA 17:16 → PH3B 18:41
PROVIDERS: ADMIT Hospitalist; ATTEND Hospitalist
DX: R06.02 Shortness of breath (principal); I48.91 Unspecified atrial fibrillation; I25.10 Atherosclerotic heart disease of native coronary artery without angina pectoris; I10 Essential (primary) hypertension; E78.00 Pure hypercholesterolemia, unspecified; I25.2 Old myocardial infarction; R94.31 Abnormal electrocardiogram [ECG] [EKG]; I44.4 Left anterior fascicular block; R00.2 Palpitations; I25.5 Ischemic cardiomyopathy; Z95.5 Presence of coronary angioplasty implant and graft; Z79.899 Other long term (current) drug therapy; Z79.82 Long term (current) use of aspirin
CPT/HCPCS: 71045; 80048; 82550; 82552; 84443; 84484; 85025; 85610; 85730; 93005; 93306; 99285; G0378

== ENCOUNTER 2017-12-16 09:56 | Observation (INO) ==
[2017-12-16] MEDS ORDERED: Morphine Inj 4 MG/ML Vial IV.PUSH ONE (10:00)
[2017-12-16 10:14] LABS: Baso # (Auto) 0.1 th/mm3 (0.0-0.2); Baso % (Auto) 1.2 % (0.0-2.0); Eos # (Auto) 0.3 th/mm3 (0.0-0.4); Eos % (Auto) 2.9 % (0.0-4.0); Hematocrit 43.5 % (39.0-51.0); Hemoglobin 14.5 gm/dL (13.0-17.0); Lymph % (Auto) 22.5 % (9.0-44.0); Mean Corpuscular HGB Conc 33.3 % (32.0-36.0); Mean Corpuscular Hemoglobin 28.1 pg (27.0-34.0); Mean Corpuscular Volume 84.3 fL (80.0-100.0); Mean Platelet Volume 9.4 fL (7.0-11.0); Mono # (Auto) 0.6 th/mm3 (0.0-0.9); Mono % (Auto) 6.9 % (0.0-8.0); Neut % (Auto) 66.5 % (16.0-70.0); Platelet Count 193 th/mm3 (150-450); Red Blood Count 5.16 mil/mm3 (4.50-5.90); Red Cell Distribution Width 13.5 % (11.6-17.2)
[2017-12-16 10:21] LABS: Chloride 107 meq/L (98-107); Potassium 4.9 meq/L (3.5-5.1); Sodium 141 meq/L (136-145)
[2017-12-16 10:25] LABS: Albumin 3.9 g/dL (3.4-5.0); Anion Gap 8 meq/L (5-15); Calcium 8.9 mg/dL (8.5-10.1); Carbon Dioxide 25.8 meq/L (21.0-32.0); Glucose,Random 104 mg/dL (74-106); Lipase 123 U/L (73-393)
[2017-12-16 10:26] LABS: Activated Partial Thrombo Time 26.1 sec (24.3-30.1); Blood Urea Nitrogen 13 mg/dL (7-18); Prothrombin Time 10.5 sec (9.8-11.6)
[2017-12-16 10:28] LABS: Alanine Aminotransferase 28 U/L (12-78); Aspartate Aminotransferase 17 U/L (15-37); Glomerular Filtration Rate 69 mL/min (>89)
[2017-12-16 10:30] LABS: Total Protein 7.4 g/dL (6.4-8.2)
[2017-12-16 10:31] LABS: Alkaline Phosphatase 60 U/L (45-117); Creatine Kinase 152 U/L (39-308)
[2017-12-16 10:43] LABS: Creatine Kinase MB 1.4 ng/mL (0.5-3.6)
--- NOTE | 2017-12-16 11:12 | ED ---
HPI General Chief Complaint: Chest Pain Stated Complaint: chest tightness/sob/dizziness Time Seen by Provider: 12/16/17 10:00 Source: patient Mode of arrival: ambulatory Limitations: no limitations History of Present Illness HPI narrative: Patient has had intermittent chest pain shortness of breath ongoing over the past week or so. This is affiliated with his episodes of palpitations. He was previously diagnosed with atrial fibrillation and was placed on Pradaxa and metoprolol. However he brought this up to Dr. Rangel who took him off of Pradaxa and metoprolol instead just placed him on Coreg. The patient has had more of these episodes and he is being on the Coreg before and it was not successful. Related Data Home Medications Medication Instructions Recorded Confirmed amlodipine 10 mg PO HS 12/16/17 12/16/17 aspirin [Aspirin Low Dose] 81 mg PO BID 12/16/17 12/16/17 isosorbide mononitrate 30 mg PO DAILY 12/16/17 12/16/17 losartan 100 mg PO DAILY 12/16/17 12/16/17 rosuvastatin 20 mg PO HS 12/16/17 12/16/17 Allergies Allergy/AdvReac Type Severity Reaction Status Date / Time lovastatin AdvReac Severe Muscle Pain Verified 12/16/17 10:22 benazepril AdvReac Mild Cough Verified 12/16/17 10:22 captopril AdvReac Mild Cough Verified 12/16/17 10:22 enalaprilat AdvReac Mild Cough Verified 12/16/17 10:22 fosinopril AdvReac Mild Cough Verified 12/16/17 10:22 lisinopril AdvReac Mild Cough Verified 12/16/17 10:22 quinapril AdvReac Mild Cough Verified 12/16/17 10:22 Review of Systems ROS: all other systems reviewed are negative [facility] Medical History Medical History Atrial fibrillation (Acute) High cholesterol (Acute) Hypertension (Acute) Myocardial infarction (Acute) Surgical History Surgical History H/O angioplasty (Acute) H/O heart artery stent (Acute) Family History Family History Mother Cardiovascular disease Father Cardiovascular disease Social History Social History Substance History: No History of Abuse Second Hand Smoke Exposure: No Smoking Status: Never smoker How Often Do You Have a Drink Containing Alcohol: 4 or more times a week Recent Travel in [facility] within the Last 8 Weeks: No Recent Out of Country Travel within the Last 8 Weeks: No Substance Abuse Detail Alcohol: Substance Use Status: Active Route Used Substance Abuse: By Mouth Substance Frequency: 1-3 beers/day Immunization History Tetanus Immunization: >5 Years Hx Influenza Vaccine This Season: No Exam Narrative Exam Narrative: GENERAL: Well-nourished, well-developed patient in no apparent distress. SKIN: Warm and dry. HEAD: Atraumatic. Normocephalic. EYES: Pupils equal and round. No scleral icterus. No injection or drainage. ENT: No nasal bleeding or discharge. Mucous membranes pink and moist. NECK: Trachea midline. No JVD. CARDIOVASCULAR: Regular rate and rhythm. no rubs or gallops RESPIRATORY: No accessory muscle use. Clear to auscultation. Breath sounds equal bilaterally. GASTROINTESTINAL: Abdomen soft, non-tender, nondistended. No rebound or guarding MUSCULOSKELETAL: Extremities without clubbing, cyanosis, or edema. No obvious deformities. NEUROLOGICAL: Awake and alert. No obvious cranial nerve deficits. Motor grossly within normal limits. Five out of 5 muscle strength in the arms and legs. Normal speech. PSYCHIATRIC: Appropriate mood and affect; insight and judgment normal. Course Initial Documented Vital Signs Temperature 98.0 F 12/16/17 10:10 Pulse Rate 69 12/16/17 10:10 Respiratory Rate 22 12/16/17 10:10 Blood Pressure 148/89 H 12/16/17 10:10 Pulse Oximetry 97 12/16/17 10:10 Last Documented Vital Signs Temperature 98.0 F 12/16/17 10:10 Pulse Rate 72 12/16/17 13:47 Respiratory Rate 18 12/16/17 13:47 Blood Pressure 132/73 12/16/17 13:47 Pulse Oximetry 96 12/16/17 11:29 Medical Decision Making [facility] Narrative Medical Screen Exam Complete: Yes Emergency Medical Condition: Yes Differential Diagnosis Differential Diagnosis: STEMI versus pulmonary embolus versus pneumonia versus Medical Records Medical records reviewed: Yes I reviewed the patient's medical records. Lab Data Lab results reviewed: Yes I reviewed the patient's lab results. Result diagrams: 12/16/17 10:10 12/16/17 10:10 Lab Results 12/16/17 12/16/17 12/16/17 Range/Units 10:10 10:10 10:10 CBC w Diff Auto diff final WBC 9.0 (4.0-11.0) th/mm3 RBC 5.16 (4.50-5.90) mil/mm3 Hgb 14.5 (13.0-17.0) gm/dL Hct 43.5 (39.0-51.0) % MCV 84.3 (80.0-100.0) fL MCH 28.1 (27.0-34.0) pg MCHC 33.3 (32.0-36.0) % RDW 13.5 (11.6-17.2) % Plt Count 193 (150-450) th/mm3 MPV 9.4 (7.0-11.0) fL Neut % (Auto) 66.5 (16.0-70.0) % Lymph % (Auto) 22.5 (9.0-44.0) % [place] % (Auto) 6.9 (0.0-8.0) % Eos % (Auto) 2.9 (0.0-4.0) % Baso % (Auto) 1.2 (0.0-2.0) % Neut # (Auto) 6.0 (1.8-7.7) th/mm3 Lymph # (Auto) 2.0 (1.0-4.8) th/mm3 [place] # (Auto) 0.6 (0.0-0.9) th/mm3 Eos # (Auto) 0.3 (0.0-0.4) th/mm3 Baso # (Auto) 0.1 (0.0-0.2) th/mm3 WBC Differential . Differential Comment . PT 10.5 (9.8-11.6) sec INR 1.0 Ratio APTT 26.1 (24.3-30.1) sec Sodium 141 (136-145) meq/L Potassium 4.9 (3.5-5.1) meq/L Chloride 107 (98-107) meq/L Carbon Dioxide 25.8 (21.0-32.0) meq/L Anion Gap 8 (5-15) meq/L BUN 13 (7-18) mg/dL Creatinine 1.10 (0.60-1.30) mg/dL Estimated GFR 69 L (>89) mL/min Random Glucose 104 (74-106) mg/dL Calcium 8.9 (8.5-10.1) mg/dL Total Bilirubin 0.5 (0.2-1.0) mg/dL AST 17 (15-37) U/L ALT 28 (12-78) U/L Alkaline Phosphatase 60 (45-117) U/L Total Creatine Kinase 152 (39-308) U/L CK-MB (CK-2) 1.4 (0.5-3.6) ng/mL Troponin I Less than 0.02 L (0.02-0.05) ng/mL B-Natriuretic Peptide (0-100) pg/mL Total Protein 7.4 (6.4-8.2) g/dL Albumin 3.9 (3.4-5.0) g/dL Lipase 123 (73-393) U/L TSH (0.358-3.740) uIU/mL 12/16/17 12/16/17 Range/Units 10:10 10:10 CBC w Diff WBC (4.0-11.0) th/mm3 RBC (4.50-5.90) mil/mm3 Hgb (13.0-17.0) gm/dL Hct (39.0-51.0) % MCV (80.0-100.0) fL MCH (27.0-34.0) pg MCHC (32.0-36.0) % RDW (11.6-17.2) % Plt Count (150-450) th/mm3 MPV (7.0-11.0) fL Neut % (Auto) (16.0-70.0) % Lymph % (Auto) (9.0-44.0) % [place] % (Auto) (0.0-8.0) % Eos % (Auto) (0.0-4.0) % Baso % (Auto) (0.0-2.0) % Neut # (Auto) (1.8-7.7) th/mm3 Lymph # (Auto) (1.0-4.8) th/mm3 [place] # (Auto) (0.0-0.9) th/mm3 Eos # (Auto) (0.0-0.4) th/mm3 Baso # (Auto) (0.0-0.2) th/mm3 WBC Differential Differential Comment PT (9.8-11.6) sec INR Ratio APTT (24.3-30.1) sec Sodium (136-145) meq/L Potassium (3.5-5.1) meq/L Chloride (98-107) meq/L Carbon Dioxide (21.0-32.0) meq/L Anion Gap (5-15) meq/L BUN (7-18) mg/dL Creatinine (0.60-1.30) mg/dL Estimated GFR (>89) mL/min Random Glucose (74-106) mg/dL Calcium (8.5-10.1) mg/dL Total Bilirubin (0.2-1.0) mg/dL AST (15-37) U/L ALT (12-78) U/L Alkaline Phosphatase (45-117) U/L Total Creatine Kinase (39-308) U/L CK-MB (CK-2) (0.5-3.6) ng/mL Troponin I (0.02-0.05) ng/mL B-Natriuretic Peptide 125 H (0-100) pg/mL Total Protein (6.4-8.2) g/dL Albumin (3.4-5.0) g/dL Lipase (73-393) U/L TSH 3.140 (0.358-3.740) uIU/mL Imaging Data Radiologist's impression: Chest CTA 12/16/17 10:00 CONCLUSION: 1. No evidence of pulmonary embolism. 2. Cardiomegaly and coronary artery calcifications. Chest X-Ray 12/16/17 10:00 CONCLUSION: 1. Cardiomegaly. 2. No focal infiltrate or pulmonary vascular congestion. Discharge Plan Discharge Disposition Patient Disposition: 30 Still Patient Discharge Condition Condition: Stable Discharge Order Discharge Orders: Discharge Order (Routine); Ordered 12/16/17 Ordered By: Katt Goldberg Discharge Details Anticipated Discharge Date: 12/16/17 Diagnosis: Shortness of breath, Heart palpitations Physicians Team ED Provider: Felipe Hayward Primary Care Provider: Primary Care Jackelin Silva Attending Provider: Otis Wagoner Other Providers: Tito Rangel ED Status: Left Department Discharge Information Discharge Date/Time: 12/16/17 14:03
[2017-12-16] MEDS ORDERED: Enoxaparin Inj 80 MG/0.8 ML Syringe SQ ONE (11:31)
[2017-12-16] MEDS ORDERED: Acetaminophen 500 MG Tablet PO PRN (11:37)
[2017-12-16] MEDS ORDERED: Morphine Sulfate Inj 2 MG/ML Vial IV.PUSH PRN (12:00)
--- NOTE | 2017-12-16 20:05 | ECG ---
Date Performed: 12/16/2017 Time Performed: 10:02:28 PTAGE: 57 years EKG: Sinus rhythm WITH FIRST DEGREE AV BLOCK MARKED LEFT AXIS DEVIATION LOW QRS VOLTAGE IN PRECORDIAL LEADS ANTEROSEPT AL MYOCARDIAL INFARCTION ABNORMAL ECG PREVIOUS TRACING : 05/03/2017 22.34 Compared to previous tracing, no PVCs present DOCTOR: Aysha Chau Interpretating Date/Time 12/16/2017 20:04:45
[2017-12-16] MEDS ORDERED: amLODIPine 10 MG Tablet PO SCH (21:00)
[2017-12-17] MEDS ORDERED: Aspirin 325 MG Tablet PO SCH (09:00)
== END 2017-12-16 14:04 | disposition home or self-care (01) ==
LOC: PHED 09:56 → PHEDA 09:56
PROVIDERS: ADMIT Internal Medicine; ATTEND Internal Medicine